=== PATIENT | female | born 1995 | race Caucasian/White ===

== ENCOUNTER 2020-06-27 11:56 | Outpatient (CLI) | payer OTHER | END 2020-06-27 23:59 | disposition home or self-care (01) | LOC: STAR 11:56 | PROVIDERS: ATTEND Anesthesiology | DX: Z20.828 Contact with and (suspected) exposure to other viral communicable diseases (principal) | CPT/HCPCS: U0003 ==

== ENCOUNTER 2020-06-30 11:05 | Day surgery (SDC) | payer OTHER ==
[~2020-06-30] VITALS: Ht 165.1 cm; Wt 77.0 kg
[2020-06-30 11:27] VITALS: BP 117/76
[2020-06-30] MEDS ORDERED: LACTATED RINGERS 1,000 ML IV SCH (11:30)
[2020-06-30] MEDS ORDERED: CHLORHEXIDINE 15 ML UDC MM STA (11:30)
[2020-06-30] MEDS ORDERED: CHLORHEXIDINE 15 ML UDC ONE (11:36)
[2020-06-30] MEDS ORDERED: NO MEDS (11:51)
[2020-06-30] MEDS ORDERED: PLEASE ENTER HEIGHT AND WEIGHT MC SCH (12:00)
[2020-06-30 12:34] LABS: BASOPHILS % (AUTO) 0 % (0-1); EOSINOPHILS % (AUTO) 1 % (1-7); LYMPHOCYTES % (AUTO) 22 % (22-44); MEAN CORPUSCULAR HEMOGLOBIN 28.5 pg (27.0-34.8); MEAN CORPUSCULAR HGB CONC 34.3 g/dL (32.4-35.8); MONOCYTES % (AUTO) 8 % (2-9); NEUTROPHILS % (AUTO) 69 % (42-75); PLATELET COUNT 240 x10^3/uL (130-400); RED BLOOD COUNT 4.73 x10^6/uL (3.82-5.3); RED CELL DISTRIBUTION WIDTH 13.4 % (9.6-15.2)
[2020-06-30 12:37] LABS: MD NO
[2020-06-30] MEDS ORDERED: FENTANYL PF 100 MCG/2ML ONE (12:38)
[2020-06-30] MEDS ORDERED: MIDAZOLAM 1 MG/ML, 2ML ONE (12:42)
[2020-06-30] MEDS ORDERED: BUPIVACAINE/PF 0.25% ONE (12:43)
[2020-06-30] MEDS ORDERED: MISOPROSTOL 200 MCG TABLET ONE (12:44)
[2020-06-30] MEDS ORDERED: OXYTOCIN 10 UNITS/ML, 1ML ONE (12:44)
[2020-06-30] MEDS ORDERED: SILVER NITRATE STICK TP ONE (12:44)
[2020-06-30] MEDS ORDERED: METHYLERGONOVINE 0.2 MG/ML IM ONE ×2 (12:44→13:31)
[2020-06-30] MEDS ORDERED: DEXAMETHASONE 4 MG/ML, 1ML ONE (12:53)
[2020-06-30] MEDS ORDERED: PROPOFOL 10 MG/ML, 20ML ONE (13:16)
[2020-06-30] MEDS ORDERED: ONDANSETRON 2MG/ML, 2ML ONE (13:17)
[2020-06-30] MEDS ORDERED: CEFAZOLIN 1,000 MG ONE ×2 (13:17)
[2020-06-30] MEDS ORDERED: MISOPROSTOL 200 MCG TABLET PO ONE (13:29)
[2020-06-30] MEDS ORDERED: BUPIVACAINE/PF 0.25% INFIL ONE (13:29)
[2020-06-30] MEDS ORDERED: MEPERIDINE/PF 25MG/0.5ML IVPush PRN (13:30)
[2020-06-30] MEDS ORDERED: HYDROmorphone 1 MG/ML, 1ML INJ IVPush PRN (13:30)
[2020-06-30] MEDS ORDERED: ONDANSETRON 2MG/ML, 2ML IVPush PRN (13:30)
[2020-06-30] MEDS ORDERED: OXYcodone 5 MG/5 ML ORAL.SOL UDC PO PRN (13:30)
[2020-06-30] MEDS ORDERED: PROMETHAZINE 25 MG/ML, 1ML IVPush PRN (13:30)
[2020-06-30] MEDS ORDERED: LABETALOL 5MG/ML, 20ML IV PRN (13:30)
[2020-06-30] MEDS ORDERED: hydrALAzine 20 MG/ML, 1ML IV PRN (13:30)
[2020-06-30] MEDS ORDERED: PROMETHAZINE 12.5 MG SUPP PR PRN (13:30)
[2020-06-30] MEDS ORDERED: DIAZEPAM 5 MG/ML, 2ML IVPush PRN (13:30)
[2020-06-30] MEDS ORDERED: ACETAMINOPHEN 325 MG TABLET PO PRN (13:30)
[2020-06-30] MEDS ORDERED: DIPHENHYDRAMINE 50 MG/ML, 1ML IVPush PRN (13:30)
[2020-06-30] MEDS ORDERED: ALBUTEROL SULFATE 2.5 MG/3 ML NPPB PRN (13:30)
[2020-06-30] MEDS ORDERED: FENTANYL PF 100 MCG/2ML IV PRN (13:30)
[2020-06-30] MEDS ORDERED: EPHEDRINE 50 MG/ML, 1ML IVPush PRN (13:30)
[2020-06-30] MEDS ORDERED: MIDAZOLAM 1 MG/ML, 2ML IV PRN (13:30)
[2020-06-30] MEDS ORDERED: FERRIC SUBSULFATE TP ONE (13:33)
[2020-06-30] MEDS ORDERED: ACETAMINOPHEN 650 MG/20.3 ML UDC ONE (13:58)
[2020-06-30] MEDS ORDERED: MEPERIDINE/PF 25MG/ML,1ML ONE (14:10)
== END 2020-06-30 15:20 | disposition home or self-care (01) ==
LOC: OUT 11:05
PROVIDERS: ATTEND Obstetrics & Gynecology
DX: O02.1 Missed abortion (principal); F31.9 Bipolar disorder, unspecified; Z88.8 Allergy status to other drugs, medicaments and biological substances; Z91.018 Allergy to other foods
CPT/HCPCS: 36415; 59820; 85025; 88305; J0690; J1100; J2175; J2210; J2250; J2405; J2590; J2704; J3010; J7120